=== PATIENT | female | born 1940 | race Caucasian/White ===

== ENCOUNTER 2018-04-03 08:54 | Emergency (ER) | payer OTHER ==
[2018-04-03] MEDS ORDERED: NA CHLORIDE 0.9% 500 ML ONE (09:41)
[2018-04-03 10:12] LABS: BUN Blood Urea Nitrogen 15 mg/dL (7-18); Bicarbonate 29 mmol/L (21-32); Glucose Level 121 mg/dL (74-106); Potassium 3.9 mmol/L (3.5-5.1); Sodium Level 141 mmol/L (136-145); Troponin (Emerg Dept Use Only) < 0.02 ng/mL (0.0-0.045)
[2018-04-03 10:16] LABS: Absolute Lymphocytes (CBC) 1.8 K/uL (0.7-4.9); Absolute Monocytes 0.5 K/uL (0.1-1.3); Absolute Neutrophil 4.2 K/uL (1.8-8.0); Basophils % 0.9 % (0-1.3); Eosinophils % 1.4 % (0-4.4); Hematocrit 42.5 % (36.0-45.0); Lymphocytes % 27.4 % (15.3-44.8); MCH 30.3 pg (27.0-35.0); MCV 90.2 fL (80-100); MPV 8.5 fL (7.6-11.3); Monocytes % 7.1 % (3.3-12.3); RBC Red Blood Cell Count 4.71 M/uL (3.86-4.86)
--- NOTE | 2018-04-03 10:36 | RAD REPORT ---
EXAM DESCRIPTION: RAD - Chest Single View - 04/03/2018 9:56 am CLINICAL HISTORY: Hypertension, chest discomfort, chest pain COMPARISON: September 2016 TECHNIQUE: AP portable chest image was obtained 0935 hours . FINDINGS: Lung volumes are low compared to the prior study. Interstitial markings are not significan tly different. No consolidation, mass or failure. Trachea is midline. Heart and vasculature are yissel l. No measurable pleural effusion and no pneumothorax. No gross bony abnormality seen. No acute aorti c findings suspected. IMPRESSION: No acute cardiopulmonary process. No significant change from comparison.
--- NOTE | 2018-04-03 10:53 | ER ---
Nurse's Notes [facility] Name: Tiny Padron Age: 78 yrs Sex: Female : 1940 Arrival Date: 04/03/2018 Time: 08:55 Bed 4 Private MD: Tato Hart Diagnosis: Chest pain, unspecified;Hypertension Presentation: 04/03 09:13 Presenting complaint: Patient states: increasingly high blood pressure since recent BP ss medication change. Patient reports an episode of chest discomfort this morning, and took a clonidine. After clonidine took effect and BP came down, chest discomfort subsided. Transition of care: patient was not received from another setting of care. Onset of symptoms is unknown. Risk Assessment: Do you want to hurt yourself or someone else? Patient reports no desire to harm self or others. Initial Sepsis Screen: Does the patient meet any 2 criteria? No. Patient's initial sepsis screen is negative. Does the patient have a suspected source of infection? No. Patient's initial sepsis screen is negative. Care prior to arrival: None. 09:13 Method Of Arrival: Ambulatory ss 09:13 Acuity: JUDITH 3 ss Historical: - Allergies: 09:15 Codeine; ss 09:15 Erythromycin; ss - PMHx: 09:15 Hypertension; ss - PSHx: 09:15 Thyroidectomy; ss - Immunization history:: Adult Immunizations up to date. - Social history:: Smoking status: Patient/guardian denies using tobacco. - Ebola Screening: : Patient denies exposure to infectious person Patient denies travel to an Ebola-affected area in the 21 days before illness onset. - Family history:: not pertinent. - Hospitalizations: : No recent hospitalization is reported. Screenin:00 Abuse screen: Denies threats or abuse. Denies injuries from another. Nutritional sg screening: No deficits noted. Tuberculosis screening: No symptoms or risk factors identified. Never had TB. Fall Risk None identified. Assessment: 10:00 General: Appears in no apparent distress. well groomed, well developed, well nourished, sg Behavior is calm, cooperative, appropriate for age. Pain: Complains of pain in chest Quality of pain is described as aching, pressure. Neuro: Level of Consciousness is awake, alert, obeys commands, Oriented to person, place, time, situation, Laminating Machine Operator Helper are equal bilaterally Moves all extremities. Full function Gait is steady, Speech is normal, Facial symmetry appears normal. Cardiovascular: Heart tones S1 S2 present Capillary refill is brisk in bilateral fingers Patient's skin is warm and dry. Respiratory: Airway is patent Respiratory effort is even, unlabored, Respiratory pattern is regular, symmetrical. GI: Abdomen is round non-distended, Patient currently denies nausea, pain, vomiting. : No signs and/or symptoms were reported regarding the genitourinary system. EENT: No signs and/or symptoms were reported regarding the EENT system. Derm: Skin is pink, warm \T\ dry. Musculoskeletal: No signs and/or symptoms reported regarding the musculoskeletal system. Vital Signs: 09:12 BP 146 / 77; Pulse 116; Resp 18; Temp 97.0(TE); Pulse Ox 99% on R/A; Pain 0/10; ss ED Course: 08:55 Patient arrived in ED. sb2 08:55 Ttao Hart MD is Private Physician. sb2 08:56 Sathish Campos MD is Attending Physician. rn 09:09 EKG done, by retail merchandiser technician. reviewed by Sathish Campos MD. at1 09:12 Arm band placed on right wrist. ss 09:14 Triage completed. ss 09:50 Initial lab(s) drawn, by ED staff, sent to lab. Inserted saline lock: 20 gauge in left sv antecubital area, using aseptic technique. Blood collected. 09:55 X-ray completed. Portable x-ray completed in exam room. Patient tolerated procedure ml well. 09:56 XRAY Chest (1 view) In Process Unspecified. EDRI 09:57 Carlos Sanford RN is Primary Nurse. sg 10:52 Tato Hart MD is Referral Physician. rn Administered Medications: 09:58 Drug: NS 0.9% 500 ml Route: IV; Rate: bolus; Site: left antecubital; sg Outcome: 10:52 Discharge ordered by MD. rn 11:15 Discharged to home ambulatory, with family. sg 11:15 Condition: stable 11:15 Discharge instructions given to patient, family, Instructed on discharge instructions, follow up and referral plans. safety practices, Demonstrated understanding of instructions, follow-up care. 11:19 Patient left the ED. sg Signatures: Dispatcher [employer] EDRI Yesica Maldonado RN RN sv Gay, Steven, RN RN sg Lopez, Melissa ml Campos, Sathish, MD MD rn [facility] RN RN Rhiannon Bauman, forest fire warden EK Tat1 Celeste Manriquez sb2
--- NOTE | 2018-04-03 10:53 | EDPHYS ---
Physician Documentation [facility] Name: Tiny Padron Age: 78 yrs Sex: Female : 1940 Arrival Date: 04/03/2018 Time: 08:55 Bed 4 Private MD: aTto Hart ED Physician Sathish Campos HPI: 04/03 09:34 This 78 yrs old Female presents to ER via Ambulatory with complaints of Chest rn Pain. 09:34 The patient or guardian reports chest pain that is located primarily in the substernal rn area. Onset: this morning. The pain radiates to the left arm. The chest pain is described as aching, dull. Modifying factors: The symptoms are alleviated by nothing. the symptoms are aggravated by nothing. Severity of pain: At its worst the pain was mild in the emergency department the pain has improved. The patient has not experienced similar symptoms in the past. Reports checked blood pressure early this AM, was high, took a clonidine and BP improved as did chest pain, did radiate to left arm, no diaphoresis, recently taken off her diltiazem and placed on nifedipine, not liking the new medication, has been feeling flushed and blood pressure not controlled as well. No current chest pain. Chest pain lasted for about 1 hour. . Historical: - Allergies: 09:15 Codeine; ss 09:15 Erythromycin; ss - PMHx: 09:15 Hypertension; ss - PSHx: 09:15 Thyroidectomy; ss - Immunization history:: Adult Immunizations up to date. - Social history:: Smoking status: Patient/guardian denies using tobacco. - Ebola Screening: : Patient denies exposure to infectious person Patient denies travel to an Ebola-affected area in the 21 days before illness onset. - Family history:: not pertinent. - Hospitalizations: : No recent hospitalization is reported. ROS: 09:34 Constitutional: Negative for fever, chills, and weight loss, Eyes: Negative for injury, rn pain, redness, and discharge, Neck: Negative for injury, pain, and swelling, Cardiovascular: Negative for edema Respiratory: Negative for shortness of breath, cough, wheezing, and pleuritic chest pain, Abdomen/GI: Negative for abdominal pain, nausea, vomiting, diarrhea, and constipation, MS/Extremity: Negative for injury and deformity, Skin: Negative for injury, rash, and discoloration, Neuro: Negative for headache, weakness, numbness, tingling, and seizure. Exam: 09:34 Constitutional: This is a well developed, well nourished patient who is awake, alert, rn and in no acute distress. Head/Face: Normocephalic, atraumatic. Eyes: Pupils equal round and reactive to light, extra-ocular motions intact. Lids and lashes normal. Conjunctiva and sclera are non-icteric and not injected. Cornea within normal limits. Periorbital areas with no swelling, redness, or edema. Cardiovascular: tachycardic, regular, no murmur Respiratory: Lungs have equal breath sounds bilaterally, clear to auscultation and percussion. No rales, rhonchi or wheezes noted. No increased work of breathing, no retractions or nasal flaring. Abdomen/GI: Soft, non-tender, with normal bowel sounds. No distension or tympany. No guarding or rebound. No evidence of tenderness throughout. Skin: Warm, dry with normal turgor. Normal color with no rashes, no lesions, and no evidence of cellulitis. MS/ Extremity: Pulses equal, no cyanosis. Neurovascular intact. Full, normal range of motion. Equal circumference. Neuro: Awake and alert, GCS 15, oriented to person, place, time, and situation. Cranial nerves II-XII grossly intact. Motor strength 5/5 in all extremities. Sensory grossly intact. Cerebellar exam normal. Vital Signs: 09:12 BP 146 / 77; Pulse 116; Resp 18; Temp 97.0(TE); Pulse Ox 99% on R/A; Pain 0/10; ss MDM: 08:57 Patient medically screened. rn 10:50 Differential diagnosis: anxiety, coronary artery disease costochondritis, pericarditis, rn pleurisy, stable angina. Data reviewed: vital signs, nurses notes, lab test result(s), EKG, radiologic studies, and as a result, I will discharge patient. Counseling: I had a detailed discussion with the patient and/or guardian regarding: the historical points, exam findings, and any diagnostic results supporting the discharge/admit diagnosis, lab results, radiology results, the need for outpatient follow up, to return to the emergency department if symptoms worsen or persist or if there are any questions or concerns that arise at home. Response to treatment: the patient's symptoms have markedly improved after treatment, the patient's condition has returned to base line, the patient is now symptom free, and as a result, I will discharge patient. Special discussion: I discussed with the patient/guardian in detail that at this point there is no indication for admission to the hospital. It is understood, however, that if the symptoms persist or worsen the patient needs to return immediately for re-evaluation. 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 Return precautions given and understood. . 04/03 09:21 Order name: CBC with Diff rn 04/03 09:21 Order name: Basic Metabolic Panel; Complete Time: 10:20 rn 04/03 09:21 Order name: Troponin (emerg Dept Use Only); Complete Time: 10:20 rn 04/03 09:21 Order name: XRAY Chest (1 view); Complete Time: 10:40 rn 04/03 09:22 Order name: CBC with Automated Diff; Complete Time: 10:40 EDMS 04/03 09:21 Order name: IV Start; Complete Time: 09:51 rn 04/03 09:21 Order name: EKG; Complete Time: 09:22 rn 04/03 09:21 Order name: EKG - Nurse/Tech; Complete Time: 09:50 rn Administered Medications: 09:58 Drug: NS 0.9% 500 ml Route: IV; Rate: bolus; Site: left antecubital; sg Disposition: 04/03/18 10:52 Discharged to Home. Impression: Chest pain, unspecified, Hypertension. - Condition is Stable. - Discharge Instructions: Nonspecific Chest Pain, Hypertension. - Medication Reconciliation Form, Thank You Letter, Antibiotic Education, Prescription Opioid Use form. - Follow up: Tato Hart MD; When: As needed; Reason: Recheck today's complaints, Re-evaluation by your physician. - Problem is new. - Symptoms have improved. Signatures: Dispatcher [employer] EDCarlos Miranda RN RN sg Nieto, Roman, MD MD rn Smirch, Shelby, RN RN ss Corrections: (The following items were deleted from the chart) 11:19 10:52 04/03/2018 10:52 Discharged to Home. Impression: Chest pain, unspecified; sg Hypertension. Condition is Stable. Forms are Medication Reconciliation Form, Thank You Letter, Antibiotic Education, Prescription Opioid Use. Follow up: Tato Hart; When: As needed; Reason: Recheck today's complaints, Re-evaluation by your physician. Problem is new. Symptoms have improved. rn
--- NOTE | 2018-04-03 14:32 | EKG ---
Test Date: 2018-04-03 Test Time: 09:06:29 Trim Master Operator: YOVANA MEASUREMENT RESULTS: Intervals: Rate: 98 AZ: 150 QRSD: 80 QT: 338 QTc: 431 [place]: P: 61 [place]: 150 QRS: 13 T: 52 INTERPRETIVE STATEMENTS: Normal sinus rhythm Low voltage QRS Borderline ECG Compared to ECG 04/16/2017 10:39:21 Low QRS voltage now present Electronically Signed On 04-03-18 14:31:15 CDT by Damion Buck
== END 2018-04-03 11:19 | disposition home or self-care (01) ==
LOC: ER 08:54
DX: I10 Essential (primary) hypertension (principal); Z88.3 Allergy status to other anti-infective agents; Z88.5 Allergy status to narcotic agent
CPT/HCPCS: 36415; 71045; 80048; 84484; 85025; 93005; 99284

== ENCOUNTER 2024-04-28 06:01 | Day surgery (SDC) | payer OTHER ==
--- NOTE | 2024-04-23 11:47 | EKG ---
Test Date: 2024-04-23 Test Time: 11:13:09 Supervisor Vacuum Metalizing: KENNEY MEASUREMENT RESULTS: Intervals: Rate: 80 OK: 154 QRSD: 78 QT: 366 QTc: 422 [place]: P: 64 OK: 154 QRS: -30 T: 58 INTERPRETIVE STATEMENTS: Normal sinus rhythm Possible Left atrial enlargement Left axis deviation Low voltage QRS Cannot rule out Anterior infarct, age undetermined Abnormal ECG Compared to ECG 04/03/2018 09:06:29 Left-axis deviation now present Myocardial infarct finding now present Electronically Signed On 04-23-24 11:46:33 CDT by Blade Jc
[2024-04-23 12:24] LABS: PT Prothrombin Time 11.2 SECONDS (9.4-12.5); PTT, Activated Partial Thromb 32.5 SECONDS (24.3-36.9)
[2024-04-23 12:26] LABS: Specific Gravity 1.006 (1.005-1.030); Urine Bilirubin NEGATIVE (Negative); Urine Blood Negative (Negative); Urine Clarity Clear (Clear); Urine Color Colorless (Yellow); Urine Glucose NEGATIVE (Negative); Urine Ketones NEGATIVE (Negative); Urine Microscopic Reflex YN NO UMIC; Urine Nitrite NEGATIVE (Negative); Urine Protein NEGATIVE (Negative); Urine Urobilinogen Normal (Normal)
[2024-04-23 12:54] LABS: Albumin 3.7 g/dL (3.4-5.0); Anion Gap 8.9 mEq/L (5.0-15.0); Bilirubin Total 0.5 mg/dL (0.2-1.0); Globulin 3.7 g/dL (2.3-3.5); Potassium 3.9 mEq/L (3.5-5.1); Protein, Total 7.4 g/dL (6.4-8.2)
--- NOTE | 2024-04-23 13:30 | RAD REPORT ---
EXAMINATION: TWO VIEW CHEST XR CLINICAL INDICATION: Female, 84 years old. [facility] pre-op pending hip replacement. Hypertension TECHNIQUE: 2 view radiographs of the chest were performed. COMPARISON: 09/10/2018 FINDINGS: The lungs are well inflated and clear. No pneumothorax or sizable effusion. The heart is normal in si ze. Mediastinal contours are unremarkable. IMPRESSION: No acute or significant abnormalities.
[2024-04-28] MEDS: LIDOCAINE 1% MPF 5 ML VIAL ONE (06:05)
[2024-04-28] MEDS: dexAMETHasone 10 MG/ML VIAL ONE (06:05)
[2024-04-28] MEDS: SODIUM BICARB 50 MEQ/50ML VIAL ONE (06:06)
[2024-04-28] MEDS: DEXMEDETOMIDINE HCL 200 MCG/2 ML VIAL ONE (06:06)
[2024-04-28] MEDS: EPINEPHRINE 1 MG/ML VIAL ONE (06:06)
[2024-04-28] MEDS: ROPLVACAINE HCL 20 ML ONE (06:06)
[2024-04-28] MEDS: BUPIVACAINE 0.75% (PF) 2 ML SP ONE (06:07)
[2024-04-28] MEDS: MAGNESIUM SULFATE 1 gm IVPB 1 GM/100 ML BAG IV ONE (06:07)
[2024-04-28] MEDS ORDERED: propofoL 200 MG/20 ML VIAL IV ONE (06:18)
[2024-04-28] MEDS ORDERED: LIDOCAINE 2% MPF 5 ML VIAL ONE ×2 (06:18→06:32)
[2024-04-28] MEDS ORDERED: FENTANYL CITR 100 MCG/2 ML ONE ×2 (06:18→06:32)
[2024-04-28] MEDS: MORPHINE SULFATE/PF 1 MG/ML (10 ML AMP) ONE (06:23)
[2024-04-28] MEDS: GABAPENTIN 100 MG CAP ONE (06:23)
[2024-04-28] MEDS: ACETAMINOPHEN 500 MG TAB ONE (06:23)
[2024-04-28] MEDS: CELECOXIB 100 MG CAPSULE ONE (06:24)
[2024-04-28] MEDS: Oxycodone HCl/Acetaminophen 5/325 MG TAB ONE (06:24)
[2024-04-28] MEDS ORDERED: KETAMINE HCL IN 0.9 % NACL 50 MG/5 ML SYRINGE IV ONE (06:31)
[2024-04-28] MEDS ORDERED: EPINEPHRINE 1 MG/ML VIAL ONE ×2 (06:34→08:22)
[2024-04-28] MEDS: Ringers Lactate 1,000 ML IV ONE ×2 (06:35→08:00)
[2024-04-28] MEDS: CEFAZOLIN SODIUM 2 GM/VIAL ONE (07:35)
[2024-04-28] MEDS: TRANEXAMIC ACID 1,000 MG/10 ML VIAL IV ONE ×2 (07:58→09:23)
[2024-04-28] MEDS ORDERED: EPHEDRINE SULF 50 MG/ML VIAL ONE (07:58)
[2024-04-28] MEDS ORDERED: dexAMETHasone 10 MG/ML VIAL ONE (08:22)
[2024-04-28] MEDS ORDERED: LIDOCAINE 1% MPF 5 ML VIAL ONE (08:22)
[2024-04-28] MEDS ORDERED: MAGNESIUM SULFATE 1 gm IVPB 0 GM/0 ML BAG IV ONE (08:22)
[2024-04-28] MEDS ORDERED: ROPLVACAINE HCL 0 ML ONE (08:22)
[2024-04-28] MEDS ORDERED: DEXMEDETOMIDINE HCL 200 MCG/2 ML VIAL ONE (08:22)
[2024-04-28] MEDS ORDERED: BUPIVACAINE 0.75% (PF) 2 ML SP ONE (08:22)
[2024-04-28] MEDS ORDERED: SODIUM BICARB 50 MEQ/50ML VIAL ONE (08:22)
[2024-04-28] MEDS ORDERED: GLYCOPYRROLATE 0.2 MG/ML SYR ONE (08:41)
--- NOTE | 2024-04-28 09:18 | RAD REPORT ---
EXAMINATION: XR LEFT HIP CLINICAL INDICATION: . TOTAL HIP TECHNIQUE: Single intraoperative projection submitted. COMPARISON: 08/05/2023 FINDINGS: Acetabular cup and proximal femoral stem component has been placed. Alignment is as expecte d.
--- NOTE | 2024-04-28 09:37 | P.BOP ---
Preoperative diagnosis: left hip arthritis Postoperative diagnosis: same Primary procedure: left total hip arthoplasty Estimated blood loss: 100ccs Anesthesia: General Transferred to: Recovery Room Condition: Good
[2024-04-28 10:16] LABS: Hematocrit 34.9 % (36.0-45.0); Hemoglobin 11.6 g/dL (12.0-15.0)
--- NOTE | 2024-04-28 10:25 | OP ---
Date of Procedure: 04/28/2024 Surgeon: Carlos Vital MD Preoperative Diagnosis: Severe left hip arthritis, unresolved with conservative care. Postoperative Diagnosis: Severe left hip arthritis, unresolved with conservative care. Procedure: Left total hip arthroplasty using the [place] system. Estimated Blood Loss: 100 cc. Complications: There were no complications. Indications For Operation: Ms. Padron is an 84-year-old female who unfortunately has debilitating arthritic changes in her left hip. This interferes with her activities of daily living and causes h er constant pain. X-rays demonstrate severe osteoarthritic change and essential destruction of her l eft hip. Risks, benefits, and alternatives of different methods of treating this were discussed. Kassandra castle opts for total hip arthroplasty and she has thought quite a bit about this and has made her final d ecision and agrees to proceed. Description Of Procedure: The patient was taken to the operating room. Spinal anesthesia was obtain ed by Anesthesia staff. Following this, general anesthesia was obtained with placement of a Casey. She was then rolled right side down on an axillary roll and properly positioned using hip positioners . After this, left lower extremity was then prepped and draped in the usual sterile fashion for the procedure and a standard posterolateral incision was taken down carefully through skin and soft tissu es. There was significant amount of adipose tissue; however, care was taken to be remain very carefu l with this. Meticulous hemostasis maintained using Bovie electrocautery. This leads to the fascia. A small stab wound was made in the fascia. The gluteal tendon was palpated, which allows for corre ct placement of the fascial incision that was brought up near the tip of the greater trochanter. It was then curved gently backward and the gluteal muscles were spread using finger pressure. After thi s, the sciatic nerve was palpated. It should be noted that the sciatic nerve was superficial to the external rotators in a somewhat aberrant position. However, this was obviously noted and care was ta pat to protect this throughout the remainder of the case. After this, the external rotators and caps ule were then taken down and tagged for later repair. There was significant osteophyte formation, so this was removed to allow for better visualization of the head and then the head was then dislocated . A standard neck cut was made. The head was then sized using ring gauges. Acetabulum was inspecte d. Osteophytes were removed from the acetabulum as well as soft tissue. There was a central osteoph yte and this was then reamed down slightly to slightly deepen the cup. Her bone was very soft and ca re was taken not to over ream medially. Following this, it was then sequentially reamed and the cup was then placed in position and attention was turned to the femur. nougat cutter machine was used to lateralize this followed by canal-finding reamer followed by sequential broaching. When the broach appeared to be tight, an x-ray was taken, which demonstrates the cup appears to be in good position and appears to be appropriately sized stem. The final stem was selected and the cup was rechecked to ensure that this was stable and did not have any need for screws. The liner was placed. The final stem was shona jerod. It was then trialed with a standard ball. Standard ball reduces fairly easily. However, it wa s definitely stable to full flexion, full adduction and internal rotation to at least 40-45 degrees. A few remaining osteophytes were removed. Then this was selected as the final ball. The hip was th en checked to ensure there was no aberrant soft tissue or bony fragments as the final ball was then r educed. It was again stable in the above parameters. The wound was copiously irrigated and external rotators and capsule were repaired back to the greater trochanter via bone tunnels. This was follow ed by closure of fascia in a watertight fashion. This was again irrigated and skin was closed using Vicryl followed by smita. The patient was then awakened, taken to recovery room in good condition. There were no complications. /FACUNDO Voice ID: [id number] Report ID: [id number]
[2024-04-28] MEDS ORDERED: DIPHENHYDRAMINE 50 MG/ML VIAL IV PRN (10:46)
[2024-04-28 12:26] VITALS: BMI 28.3
[2024-04-28] MEDS: METOCLOPRAMIDE 10 MG/2mL INJ IV PRN (12:36)
[2024-04-28] MEDS: ONDANSETRON 4 MG/2 ML VIAL ONE (12:38)
[2024-04-28] MEDS: CEFAZOLIN 1 GM in NA CHLORIDE 0.9% 50 ML IVPB SCH (16:26)
--- NOTE | 2024-04-28 17:38 | P.CNS ---
Date of Consult: 04/28/24 Reason for Consult: medical management Requesting Physician: Carlos Vital Primary Care Provider: Hailey Chief Complaint: s/p left hip arthroplasty History of Present Illness: 84yo F, PMH: hypothyroidism, HTN, who underwent elective left total hip arthroplasty with spinal block today by Dr. Vital. She reports otherwise being in her usual state of health, with no significant change in her home med ications. She reports doing ok so far after surgery, pain is tolerable. She did have some nausea when initially transferred to floor from recovery. [place] improvement, but then threw up after eating broth later in the day. No nausea/vomiting prior to surgery. Denies any chest pain, shortness of breath, abdominal pain. Casey remains in place Allergies codeine Allergy (Verified 04/28/24 06:56) Hives/Rash erythromycin base Allergy (Verified 04/28/24 06:56) Hives/Rash Home Medications: Levothyroxine Sodium [Synthroid] 50 mcg PO DAILY 04/23/24 Verapamil HCl [Verapamil ER] 180 mg PO BID 04/23/24 - Past Medical/Surgical History Diabetic: No -: HTN -: OA -: Vertigo -: Hypothyroidism -: hemithyroidectomy (misdiagnosed) -: tonsillectomy -: left total hip - Family History Father Medical History: Heart disease, Hypertension Mother Medical History: Heart disease, GI disease, Cancer, Other (see notes) Notes: surgery for bowel resection twice, skin cancer - Social History Alcohol use: No CD- Drugs: No Caffeine use: Yes Place of Residence: Home Review of Systems 10-point ROS is otherwise unremarkable Physical Examination Temp Pulse Resp BP Pulse Ox 97.1 F 54 14 114/65 100 04/28/24 16:00 04/28/24 16:00 04/28/24 16:00 04/28/24 16:00 04/28/24 16:00 General: Alert, In no apparent distress, Oriented x3 HEENT: EOMI, Sclerae nonicteric Respiratory: Clear to auscultation bilaterally, Normal air movement Cardiovascular: No edema, Regular rate/rhythm Gastrointestinal: Soft and benign, Non-distended, No tenderness Musculoskeletal: Tenderness (at left hip. ROM limited due to pain) Integumentary: No rashes, No significant lesion, Other (surgical dressing c/d/i) Neurological: Normal speech, Normal affect, Other (diminished sensation bilateral soles of feet (chronic)) Laboratory Data (last 24 hrs) 04/28/24 09:55 Hgb 11.6 L Hct 34.9 L Physician Review Additional Text: Problem List OA now s/p Left total hip arthroplasty HTN Hypothyroidism pain control PT consulted anticoagulation/dvt prophylaxis per Ortho confirm home meds BP on low-normal side currently, will hold anti-hypertensive meds for now need to confirm meds regardless restart home synthroid once confirmed plan for discharge home with home health/PT nausea - post-op, suspect secondary to anesthesia Time Spent Managing Pts care (In Minutes): 55
[2024-04-28 18:26] LABS: Hematocrit 37.2 % (36.0-45.0)
[2024-04-29] MEDS: NA CHLORIDE 0.9% 1,000 ML IV SCH (00:34)
[2024-04-29 04:56] LABS: Hematocrit 33.4 % (36.0-45.0); Hemoglobin 11.1 g/dL (12.0-15.0)
[2024-04-29] MEDS: LEVOTHYROXINE SOD 0.05 MG TABLET PO SCH (05:21)
--- NOTE | 2024-04-29 06:59 | P.PN ---
Date of Service: 04/29/24 Subjective: no acute events overnight nausea resolved tolerated breakfast took a few steps/shuffle's with PT today, limited due to pain feels like leg might give out / feels strange ROS: 10 point ROS as noted above, otherwise negative Physical Exam: GEN: Alert, NAD CV: Regular rate and rhythm, no edema Pulm: Nonlabored respirations on room air, clear bilaterally MSK: Left hip tenderness, dressing c/d/i, no appreciable hematoma/fluid collection Problem List: Osteoarthritis now s/p Left total hip arthroplasty (04/28) Hypertension Hypothyroidism continue PT pain control continue Lovenox for DVT prophylaxis - xarelto already sent by Ortho and picked up by patient continue home synthroid restart home verapamil this evening PRN reglan / zofran suspect post-op nausea secondary to anesthesia - now resolved colace as needed for constipation continue IV fluids dc vásquez voiding trials VTE: Lovenox Code: Full Dispo: per ortho; anticipate home with home health/PT today vs tomorrow otherwise cleared medically for discharge ss/cm consulted Time Spent Managing Pts Care (In Minutes): 41
[2024-04-29] MEDS: ENOXAPARIN 40 MG/0.4 ML SQ SCH (08:39)
[2024-04-29] MEDS: HYDROCODONE/APAP 7.5/325 MG TAB PO PRN (10:07)
[2024-04-29] MEDS: DOCUSATE NA 100 MG CAP PO PRN (19:57)
[2024-04-29] MEDS: CALCIUM CARBONATE CHEW 500MG TAB PO PRN (20:01)
[2024-04-29] MEDS: VERAPAMIL SR 180 MG TAB PO SCH (20:34)
[2024-04-30 04:39] LABS: Hematocrit 33.8 % (36.0-45.0); Hemoglobin 11.3 g/dL (12.0-15.0)
--- NOTE | 2024-04-30 08:03 | P.PN ---
Date of Service: 04/30/24 Subjective: no further episodes of nausea reports dealing with some acid reflux appetite improving urinating without issues ambulated few feet with PT yesterday ROS: 10 point ROS as noted above, otherwise negative Physical Exam: GEN: Alert, NAD CV: Regular rate and rhythm, no edema Pulm: Nonlabored respirations on room air, clear bilaterally MSK: Left hip tenderness, dressing c/d/i, no appreciable hematoma/fluid collection Problem List: Osteoarthritis now s/p Left total hip arthroplasty (04/28) Nausea secondary to anesthesia; resolved Constipation Hypertension Hypothyroidism continue Lovenox for DVT prophylaxis - xarelto already sent by Ortho and picked up by patient continue home synthroid, verapamil suspect post-op nausea secondary to anesthesia - now resolved Casey dc'd 04/29. Urinating without issues continue pepcid for reflux colace as needed for constipation appetite improving continue PT pain control norco 15mg may be contributing to nausea, decrease to 7.5mg for now VTE: Lovenox Code: Full Dispo: per ortho; anticipate home with home health/PT today vs tomorrow otherwise cleared medically for discharge ss/cm consulted Time Spent Managing Pts Care (In Minutes): 41
[2024-04-30] MEDS: ONDANSETRON 4 MG/2 ML VIAL IV PRN (09:09)
[2024-04-30] MEDS: FAMOTIDINE 20 MG TAB PO SCH (09:10)
[2024-05-01 05:54] VITALS: O2SAT 96
[2024-05-01] MEDS: HYDROCODONE/APAP 7.5/325 MG TAB PO PRN (06:09)
[2024-05-01 06:23] LABS: Hematocrit 31.6 % (36.0-45.0); Hemoglobin 10.6 g/dL (12.0-15.0)
--- NOTE | 2024-05-01 09:21 | P.PN ---
Date of Service: 05/01/24 Subjective: hip pain improving and tolerable with oral medication felt slightly dizzy when working with PT, but did ok strength slowly improving no further episodes of nausea patient unable to arrange ride yesterday afternoon/evening, but arranged for this morning ROS: 10 point ROS as noted above, otherwise negative Physical Exam: GEN: Alert, NAD, sitting up in chair at bedside CV: Regular rate and rhythm, no edema Pulm: Nonlabored respirations on room air, clear bilaterally MSK: Left hip tenderness, dressing c/d/i Problem List: Osteoarthritis now s/p Left total hip arthroplasty (04/28) Nausea secondary to anesthesia; resolved Constipation Hypertension Hypothyroidism continue Lovenox for DVT prophylaxis - xarelto already sent by Ortho and picked up by patient continue home synthroid, verapamil suspect post-op nausea secondary to anesthesia - now resolved Casey dc'd 04/29. Urinating without issues continue pepcid for reflux colace as needed for constipation appetite improving continue PT pain control norco decreased to 7.5mg (04/30) VTE: Lovenox Code: Full Dispo: home today, will have a friend who is home health RN stay with her for a few days ss/cm consulted - began process for SNF that will continue while patient is at home, in event she progresses slower / will need SNF since lives alone Time Spent Managing Pts Care (In Minutes): 31
[2024-05-01 10:20] VITALS: BP 135/71; TEMP 97.1
== END 2024-05-01 11:57 | disposition home health service (06) ==
LOC: OR 06:01 → 2ND 09:38 → OR 05-01 11:57
PROVIDERS: ATTEND Orthopaedic Surgery
PROC: 0SRB0JA Replacement of Left Hip Joint with Synthetic Substitute, Uncemented, Open Approach (ICD-10-PCS; principal; 2024-04-28 07:00)
DX: M16.12 Unilateral primary osteoarthritis, left hip (principal); I10 Essential (primary) hypertension; E03.9 Hypothyroidism, unspecified; Z88.5 Allergy status to narcotic agent; Z88.3 Allergy status to other anti-infective agents
CPT/HCPCS: 27130; 93005; 36415 ×3; 85610; 88304; 88311; 85730; 85018 ×4; 85014 ×4; 81003; 80053; 71046; 73501; 97110 ×2; 97116 ×3; 97161; 97530 ×4; 94760 ×3; C1776 ×3; J3475; J2704; J2765; J2003 ×3; J1650; J3010 ×2; J1100; J0171 ×2; J2405; J7120 ×2; J0690; 88305